=== PATIENT | female | born 1955 | race Caucasian/White ===

== ENCOUNTER → 2022-05-29 15:28 | Outpatient (CLI) | payer MEDICARE, OTHER, SELFPAY ==
--- NOTE | 2022-05-29 15:36 | DI.MRI.S_ITS ---
PROCEDURE: MR ANKLE RT WO CON INDICATIONS: Stress fracture, right HEEL TECHNIQUE: Noncontrast sagittal T1 spin echo and T2 fast spin echo with fat saturation, axial proton density fast spin echo and T2 fast spin echo with fat saturation, coronal T1 spin echo and T2 fast spin echo with fat saturation through the ankle/hindfoot. Additional small botni-oo-ytsp oblique axial T1 spin echo and T2 fast spin echo with fat saturation and oblique coronal PD fast spin echo and T2 fast spin echo with fat saturation through the calcaneus. COMPARISON: None. FINDINGS: Image quality: Excellent. Bones and joints: Mild osseous edema is seen within the plantar aspect of the calcaneus at the plantar fascial origin. Focal high-grade cartilage loss is seen overlying the medial talar dome with associated mild subchondral edema. No loose osteochondral fragment. No bone marrow contusions or fractures. No hindfoot coalitions. Medial structures: The deep and superficial layers of the deltoid ligament appear intact. The spring ligament components are intact. Mild posterior tibialis tenosynovitis. The flexor digitorum longus and flexor hallucis longus tendons are intact. The posterior tibial neurovascular bundle appears normal within the tarsal tunnel, without extrinsic mass effect. Lateral structures: Remote prior grade 2-3 sprain of the calcaneofibular ligament. Chronic low-grade sprain of the anterior talofibular ligament. The posterior talofibular ligament is intact. The anterior and posterior tibiofibular ligaments appear intact. There is peroneus brevis and longus tendinosis and mild tenosynovitis. Mild partial effacement of the normal fat signal in the sinus tarsi. Anterior structures: The tibialis anterior, extensor hallucis longus, and extensor digitorum longus tendons appear intact. The dorsal talonavicular ligament appears intact. Posterior and plantar structures: Achilles tendon is intact there is thickening of the proximal plantar fascia with surrounding soft tissue edema and a small amount of adjacent fluid signal intensity the. Osseous edema is seen in the adjacent portion of the calcaneus without a discrete fracture line. No abductor digiti quinti muscle atrophy to suggest Knutson neuropathy. IMPRESSION: 1. Moderate acute proximal plantar fasciitis and suspected low-grade partial tearing with surrounding soft tissue edema. Osseous edema is seen in the adjacent plantar portion of the calcaneus, which is most likely reactive. No discrete fracture line is seen. 2. Mild to moderate peroneus brevis tendinosis and tenosynovitis. 3. Remote prior grade 2-3 sprain of the calcaneofibular ligament. Chronic grade 1 sprain of the anterior talofibular ligament. 4. Mild distal posterior tibialis tenosynovitis. Approved by: Milo Alcala M.D. on 05/30/2022 at 8:28
== END ==
PROVIDERS: PCP Family Medicine; Referring Provider Podiatrist; Visit Provider Podiatrist
DX: M84.374A Stress fracture, right foot, initial encounter for fracture (principal); S93.411A Sprain of calcaneofibular ligament of right ankle, initial encounter; S93.491A Sprain of other ligament of right ankle, initial encounter; M65.871 Other synovitis and tenosynovitis, right ankle and foot; M72.2 Plantar fascial fibromatosis; M79.671 Pain in right foot; R60.0 Localized edema
CPT/HCPCS: 73721